=== PATIENT | male | born 1970 | race African-American/Black ===

== ENCOUNTER 2020-09-14 04:36 | Day surgery (SDC) | payer OTHER ==
[2020-08-18 08:23] VITALS: BMI 37.5
[2020-09-14 11:48] VITALS: TEMP 97.7
[2020-09-14 12:13] VITALS: PULSE 61
[2020-09-14 12:35] VITALS: BP 136/100
== END 2020-09-14 12:50 | disposition home or self-care (01) ==
LOC: JASU-ENDO 04:36
PROVIDERS: ATTEND Internal Medicine Gastroenterology
PROC: 0DBN8ZX Excision of Sigmoid Colon, Via Natural or Artificial Opening Endoscopic, Diagnostic (ICD-10-PCS; 2020-09-14)
PROC: 0DBP8ZX Excision of Rectum, Via Natural or Artificial Opening Endoscopic, Diagnostic (ICD-10-PCS; 2020-09-14)
PROC: 0DBC8ZX Excision of Ileocecal Valve, Via Natural or Artificial Opening Endoscopic, Diagnostic (ICD-10-PCS; principal; 2020-09-14 11:00)
DX: Z12.11 Encounter for screening for malignant neoplasm of colon (principal); K57.50 Diverticulosis of both small and large intestine without perforation or abscess without bleeding; D12.8 Benign neoplasm of rectum; D12.5 Benign neoplasm of sigmoid colon; D12.1 Benign neoplasm of appendix; K64.8 Other hemorrhoids

== ENCOUNTER 2022-11-23 10:21 | Emergency (ER) | payer OTHER ==
[2022-11-23 10:28] VITALS: BMI 29.5
[2022-11-23] MEDS ORDERED: ACETAMINOPHEN 1000 MG/100 ML BAG IVPB ONE (11:19)
[2022-11-23] MEDS ORDERED: LIDOCAINE 5% TOPICAL PATCH TP ONE (11:19)
[2022-11-23] MEDS ORDERED: CYCLOBENZAPRINE HCL 5 MG TABLET PO ONE (11:22)
[2022-11-23] MEDS ORDERED: CYCLOBENZAPRINE HCL 5 MG TABLET PO SCH (11:30)
[2022-11-23] MEDS ORDERED: LIDOCAINE 5% TOPICAL PATCH ONE (11:32)
[2022-11-23] MEDS ORDERED: CYCLOBENZAPRINE HCL 10 MG TABLET (FP) ONE (11:32)
[2022-11-23] MEDS ORDERED: ACETAMINOPHEN INJECTION 100 ML IVPB ONE (11:32)
[2022-11-23 11:53] LABS: BASO % 0.4 % (0-2.0); EOS % 4.4 % (0-4.5); HEMATOCRIT 40.5 % (35.4-49); HEMOGLOBIN 13.8 GM/dL (11.7-16.9); LYMPH % 30.3 % (8-40); MCHC 34.1 g/dl (32.0-35.9); MEAN CELL VOLUME 87.8 fl (80-96); MEAN PLT VOLUME 9.9 fl (7.5-11.1); MONO % 7.1 % (3.8-10.2); NEUT % 57.8 % (42.8-82.8); PLATELET COUNT 192 10^3/uL (134-434); RBC 4.62 M/mm3 (4.00-5.60); WHITE BLOOD COUNT 6.3 K/mm3 (4.0-10.0)
[2022-11-23 12:18] LABS: POTASSIUM 4.3 mmol/L (3.5-5.1)
[2022-11-23 12:20] LABS: ALBUMIN 4.3 g/dl (3.4-5.0); BLOOD UREA NITROGEN 20.3 mg/dL (7-18); CALCIUM 9.8 mg/dL (8.5-10.1)
[2022-11-23 12:23] LABS: CREATININE 1.2 mg/dL (0.55-1.3)
[2022-11-23 12:25] LABS: BILIRUBIN,TOTAL 0.4 mg/dL (0.2-1)
[2022-11-23 12:30] LABS: TOT PROT 7.9 g/dl (6.4-8.2)
[2022-11-23 12:54] VITALS: TEMP 97.9
[2022-11-23] MEDS ORDERED: KETOROLAC TROMETHAMINE 15 MG/ML VIAL IVPUSH ONE (13:05)
[2022-11-23] MEDS ORDERED: KETOROLAC TROMETHAMINE 15 MG/ML VIAL ONE ×2 (13:15→13:19)
[2022-11-23 13:29] VITALS: BP 182/119; PULSE 62; RESP 20
[2022-11-23] MEDS ORDERED: LIDOCAINE PATCH REMOVAL MC ONE (22:00)
== END 2022-11-23 13:31 | disposition home or self-care (01) ==
LOC: JER 10:21
PROC: 3E033NZ Introduction of Analgesics, Hypnotics, Sedatives into Peripheral Vein, Percutaneous Approach (ICD-10-PCS; principal; 2022-11-23)
PROC: 3E0333Z Introduction of Anti-inflammatory into Peripheral Vein, Percutaneous Approach (ICD-10-PCS; 2022-11-23)
DX: M54.42 Lumbago with sciatica, left side (principal); W10.1XXA Fall (on)(from) sidewalk curb, initial encounter
CPT/HCPCS: 36415; 80053; 85025; 93005; 93010; 99285-25

== ENCOUNTER 2025-05-18 06:31 | Day surgery (SDC) | payer OTHER ==
[2025-05-11 11:37] VITALS: BMI 36.2
[2025-05-18 08:27] VITALS: RESP 18
[2025-05-18 09:22] VITALS: TEMP 97.4
[2025-05-18 10:35] VITALS: BP 112/78; PULSE 61
== END 2025-05-18 09:58 | disposition home or self-care (01) ==
LOC: JASU-ENDO 06:31
PROVIDERS: ATTEND Internal Medicine Gastroenterology
PROC: 0DBK8ZX Excision of Ascending Colon, Via Natural or Artificial Opening Endoscopic, Diagnostic (ICD-10-PCS; principal; 2025-05-18 08:45)
DX: Z12.11 Encounter for screening for malignant neoplasm of colon (principal); D12.2 Benign neoplasm of ascending colon; K64.8 Other hemorrhoids; K57.30 Diverticulosis of large intestine without perforation or abscess without bleeding; Z86.0100 Personal history of colon polyps, unspecified
CPT/HCPCS: 88305-TC